=== PATIENT | female | born 1980 | race Two or more races ===

== ENCOUNTER 2018-05-14 08:22 | Outpatient (CLI) | payer OTHER ==
--- NOTE | 2018-05-14 11:27 | Mammography Report ---
Reason: BREAST CA SCREENING,SIGNIFICANT FAMILY HX OF BRAVO Procedure Date: 05/14/2018 Accession Number: [id number] / [id number] Procedure: MGN - Screening Mammo Dig Bilat CPT Code: FULL RESULT: EXAM: Screening Mammo Dig Bilat DATE: 05/14/2018 8:55 AM CLINICAL HISTORY: Baseline mammogram TECHNIQUE: Bilateral CC and MLO views were obtained. COMPARISON: None FINDINGS: The breast tissue is heterogeneously dense. No dominant mass on the right. In the left upper outer quadrant middle third there is a rounded nodule which may represent a cyst. No clustered microcalcifications, skin thickening, or regions of architectural distortion are identified in either breast. IMPRESSION: Round nodule left breast possibly a cyst. Suggest follow-up by left breast ultrasound. Negative right breast. RECOMMENDATION: Left breast ultrasound. BIRADS CATEGORY 0: Needs additional evaluation left breast. STANDARD QUALIFYING STATEMENTS: 1. This examination was reviewed with the aid of Computer-Aided Detection (CAD). 2. A negative or benign imaging report should not delay biopsy if clinically suspicious findings are present. Consider surgical consultation if warrented. More than 5% of cancers are not identified by imaging. 3. Dense breasts may obscure an underlying neoplasm.
== END 2018-05-14 08:23 | disposition home or self-care (01) ==
LOC: DI.N 08:22
PROVIDERS: ATTEND Physician Assistant Medical
DX: Z12.31 Encounter for screening mammogram for malignant neoplasm of breast (principal); Z80.3 Family history of malignant neoplasm of breast; N63.21 Unspecified lump in the left breast, upper outer quadrant
CPT/HCPCS: 77067

== ENCOUNTER 2018-06-02 07:55 | Outpatient (CLI) | payer OTHER ==
--- NOTE | 2018-06-03 08:42 | Ultrasound Report ---
Reason: UNSPECIFIED LUMP IN THE LEFT BREAST, UPPER OUTER Q Procedure Date: 06/02/2018 Accession Number: [id number] / [id number] Procedure: US - Breast Unilateral Limited CPT Code: FULL RESULT: EXAM: Breast Unilateral Limited DATE: 06/02/2018 9:22 AM CLINICAL HISTORY: Diagnostic breast ultrasound due to finding of a round left breast nodule on screening mammography. COMPARISON: 05/14/2018. TECHNIQUE: Targeted ultrasound was performed of the left breast in the area of clinical concern at 2 o'clock and 2 cm distance from the nipple. Color Doppler was employed as appropriate. FINDINGS: A 1 cm cyst with well demarcated wall, no internal echoes and positive increased through transmission is identified and corresponds in location and shape to the mammographic finding, concordant and typically benign. No suspicious soft tissue nodule, mass or architectural distortion is identified. IMPRESSION: Benign findings RECOMMENDATION: Recommend routine annual Screening mammography unless otherwise clinically indicated. BIRADS CATEGORY 2: Benign findings [facility]
== END 2018-06-02 07:56 | disposition home or self-care (01) ==
LOC: DI 07:55
PROVIDERS: ATTEND Physician Assistant Medical
DX: N60.02 Solitary cyst of left breast (principal)
CPT/HCPCS: 76642